=== PATIENT | male | born 1940 | race Caucasian/White ===

== ENCOUNTER 2016-10-25 13:43 | Inpatient (IN) | payer MEDICARE, OTHER ==
[~2016-10-25] VITALS: Ht 177.8 cm; Wt 123.0 kg
--- NOTE | ~2016-10-25 | DS ---
PATIENT'S NAME: LIGIA BABCOCK [facility] AGE: 76 Y [address] ROOM: [place] [address] LOCATION: [facility] ADMIT DATE: 10/25/2016 Discharge Summary DISCHARGE DATE: 10/28/2016 FAMILY PHYSICIAN: Ryann Kidd APRN ATTENDING PHYSICIAN: Axel Jeffrey HOSPITAL COURSE: Mr. Babcock was admitted, open right ankle and talus fracture and dislocation, was taken emergently to the operating room, had irrigation and debridement, open relocation of the right foot talonavicular joint, open relocation of right foot subtalar joint, open relocation of right ankle joint, repair of the apical fracture of distal fibula and the ankle capsule and application of a posterior splint external fixator. He received 72 hours of IV antibiotics. The wounds were stable. Ready for discharge to home with normal saline. Wet-to-dry dressing changes on the open wound. Regular diet. Non-weight bear on the right. Lovenox to avoid DVTs. Other medications to include Metoprolol, triamterene, Tylenol, Levitra. Will follow up with Dr. Jeffrey on November 18, 2016 at 10:00 a.m. AXEL JEFFREY MD DPM/zbigniew /[id number] d: 11/03/16 1345 t: 11/06/16 1219, DISCHARGE SUMMARY
--- NOTE | ~2016-10-25 | ER ---
PATIENT'S NAME: [facility] AGE: 76 Y [address] ROOM: [place] [id number] [place] [facility] [place]MIT DATE: 10/25/2016 ER/Outpatient Report DISCHARGE DATE: FAMILY PHYSICIAN: Ryann Kidd APRN ATTENDING PHYSICIAN: Axel Stoddard Time of Arrival: 1343. Time Seen: 1343. IDENTIFICATION: 76-year-old male. CHIEF COMPLAINT: Right ankle injury. HISTORY OF PRESENT ILLNESS: The patient is a 76-year-old male, who was brought in by EMS after falling off a step ladder in [place]. He hit the right side of his head, shoulder, and hip. No pain or injury in those areas. He did not lose consciousness. He has no headache. No vision changes. No neck pain. No numbness or tingling. No pain in the hip or shoulder. He has had a previous hip pinning on the right. He has pain in the right lower extremity. PAST MEDICAL HISTORY: ALLERGIES: PENICILLIN, SULFA, AND ERYTHROMYCIN CAUSING RASH. CURRENT MEDICATIONS: 1. Metoprolol 50 mg b.i.d. 2. Dyazide 75 mg half tablet daily. 3. Vardenafil 20 mg daily. MEDICAL PROBLEMS: Hypertension, hyperlipidemia, prostate cancer. PRIOR SURGERIES: Prostate surgery, right knee surgery, and right hip pinning. 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 Tobacco use, denies. Alcohol use, denies. Drug use, denies. Last tetanus, uncertain, greater than 10 years. The last meal was at 12:15 today. REVIEW OF SYSTEMS: PATIENT'S NAME: [facility] AGE: 76 Y [address] ROOM: [address] [address] [place] [facility] [place]MIT DATE: 10/25/2016 ER/Outpatient Report DISCHARGE DATE: FAMILY PHYSICIAN: Ryann Kidd APRN ATTENDING PHYSICIAN: Axel Stoddard All systems reviewed and negative other than what is noted in the HPI. FAMILY HISTORY: No pertinent family history identified. PHYSICAL EXAMINATION: VITAL SIGNS: Height 5 feet 10.5 inches and weight 126.5 kg. Blood pressure 157/70, pulse 63, respiratory rate 16, temperature 98.2, and saturations 96% on room air. GENERAL: A 76-year-old male, in mild distress. HEENT: Head: Normocephalic, atraumatic. Eyes: Pupils equal and reactive to light and accommodation. Extraocular movements intact. Nose: Mucosa pink. No lesions or drainage. Mouth: No lesions. Pharynx benign. NECK: Supple. No lymphadenopathy. No tenderness to palpation of his cervical spine. No tenderness to palpation of his cervical spine. No tenderness to palpation of his thoracic or lumbar spine. LUNGS: Clear to auscultation. ABDOMEN: Protuberant. Bowel sounds present. Soft, nondistended, nontender. No tenderness to pelvic rock. EXTREMITIES: Upper extremities, full range of motion. No deformities noted. Lower extremities, decreased range of motion right lower extremity with an obvious deformity with bleeding from a puncture wound over the lateral malleolus. He has a varus deformity of the right ankle. Distal pulses are 2+. Sensation is normal. NEUROLOGIC: The patient is alert and oriented x4. Cranial nerves 2 through 12 grossly intact. Motor strength 5/5 throughout. Sensation is intact to light touch. EMERGENCY DEPARTMENT COURSE: An IV was initiated. The patient was given fentanyl for pain control. Tetanus has been boosted. Clindamycin was ordered for antibiotics. X-ray of the pelvis, no acute fracture pending radiology over-read. X-ray of the right ankle reveals a dislocation of the subtalar joint with marked displacement with several adjacent fracture fragments and asymmetric widening along the medial aspect of the mortise. There is a horizontal fracture through the medial malleolus. IMPRESSION AND PLAN: 1. Open ankle fracture dislocation. Dr. Stoddard, orthopedic surgeon, was consulted, evaluated the patient in the emergency room, attempted closed reduction, which was unsuccessful. The patient did get a tetanus boosted here and clindamycin [address] scan of the right lower extremity revealed fracture dislocation of the talus, mildly comminuted and displaced fractures medial and lateral malleoli, anterior process calcaneus fracture, open fracture with extensive soft tissue gas. The PATIENT'S NAME: CLAUDETTE [facility] AGE: 76 Y [address] ROOM: [address] [address] LOCATION: [facility] [place]MIT DATE: 10/25/2016 ER/Outpatient Report DISCHARGE DATE: FAMILY PHYSICIAN: Ryann Kidd APRN ATTENDING PHYSICIAN: Axel Stoddard patient was taken emergently to the operating room per Dr. Stoddard for open reduction I and D, ORIF, and external fixator. 2. Hypertension. 3. History of prostate cancer. MD SILVIA IRENE/modl /[id number] d: 10/25/16 2140 t: 10/26/16 1244, OUTPATIENT REPORT
--- NOTE | ~2016-10-25 | HP ---
PATIENT'S NAME: CLAUDETTE [facility] AGE: 76 Y [address] ROOM: [place] [address] LOCATION: [facility] ADMIT DATE: 10/25/2016 History & Physical DISCHARGE DATE: FAMILY PHYSICIAN: Ryann Kidd APRN ATTENDING PHYSICIAN: Axel Jeffrey DATE OF SERVICE: 10/25/2016 TIME OF EVALUATION: 2:30 p.m. HISTORY OF PRESENT ILLNESS: Mr. Babcock is a 76-year-old white male, self-employed, working on his [employer] business, fell off a ladder, and sustained an open fracture dislocation of right foot and ankle. Denies any other injuries. MEDICATIONS: Takes metoprolol and hydrochlorothiazide. ALLERGIES: TO PENICILLIN. PAST MEDICAL HISTORY: He has prostate cancer and hypertension. SOCIAL HISTORY: Stopped smoking in the past. No alcohol. FAMILY MEDICAL HISTORY: Remarkable for cancer. 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 Does not consider himself retired. PHYSICAL EXAMINATION: HEENT: He hears and sees. Pharynx is clear. Back is nontender. HEART: Pulse rate is regular. LUNGS: Able to take in a deep breath. ABDOMEN: Obese, but nontender. EXTREMITIES: His right ankle is deformed, significant valgus deformity. There is an open wound laterally with fat tinged blood being expressed. Decreased sensation in the right foot. The pulses are palpable. DIAGNOSTIC DATA: X-ray series of the right ankle and foot are difficult to interpret. They are PATIENT'S NAME: [facility] AGE: 76 Y [address] ROOM: [place] [address] LOCATION: [facility] ADMIT DATE: 10/25/2016 History & Physical DISCHARGE DATE: FAMILY PHYSICIAN: Ryann Kidd APRN ATTENDING PHYSICIAN: Axel Jeffrey nonstandard views but there is dislocation of the talocalcaneal joint and also the talotibial joint, most likely a fracture but not obvious wear. ASSESSMENT/PLAN: To the operating room for an emergent irrigation and debridement of the open fracture and dislocation of the right ankle and foot. Most likely, has a talar fracture, may have a small fracture of the ankle as well, it is not seen on the x-rays. We will do a CT scan to help sort out immediately before surgery. Understands risk of avascular necrosis. 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 Could have a nonunion and may also have resulted in osteomyelitis. Risks, benefits, and alternatives were all discussed in detail. AXEL JEFFREY MD DPM/zbigniew /[id number] D: [id number] T: 004 HISTORY & PHYSICAL
--- NOTE | ~2016-10-25 | OR ---
PATIENT'S NAME: CLAUDETTE [facility] AGE: 76 Y [address] ROOM: [address] [address] [place] [facility] [place]: 10/25/2016 OR/Procedure Report DISCHARGE DATE: FAMILY PHYSICIAN: Ryann Kidd APRN ATTENDING PHYSICIAN: Axel Jeffrey SURGEON: Axel Jeffrey MD CMO & PRESIDENT: DATE OF PROCEDURE: 10/25/2016 DIAGNOSES: 1. Open dislocations of right ankle, right foot subtalar joint, and right foot talonavicular joint. 2. Open fracture, bimalleolar right ankle. 3. Open fracture of talus. 4. Anterior process fracture of the calcaneus. PROCEDURE: 1. Irrigation and debridement, open fractures and open joints of right ankle with foot. 2. Open relocation, right foot talonavicular joint. 3. Open relocation, right foot subtalar joint. 4. Open relocation, right ankle joint. 5. Repair apical fracture of distal fibula and ankle capsule and talofibular ligaments with #2 Ethibond. Closed treatment of calcaneal fracture. 6. Application of an external fixator. 7. Application of a posterior splint. ANESTHESIA: General en bloc. 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 To the operating room for urgent irrigation and debridement and relocations and application of external fixator and possible limited internal fixation. Risks, benefits, and alternatives were all discussed. Understands high risk of avascular necrosis of the talus, guarantee traumatic osteoarthritis, possible nonhealing or malunion, and osteomyelitis. Risks, benefits, and alternatives were all discussed in detail. The patient and family understand the plan of treatment which will involve multiple operations. DESCRIPTION OF PROCEDURE: Mr. Babcock was taken to the operating room, had been given clindamycin in the emergency room. General anesthetic was administered via endotracheal tube. He also had a previous placement of right lower extremity nerve block. Tourniquet was placed high about the right thigh. PATIENT'S NAME: CLAUDETTE [facility] AGE: 76 Y [address]: [address] [address] [place] [facility]: 10/25/2016 OR/Procedure Report DISCHARGE DATE: FAMILY PHYSICIAN: Ryann Kidd APRN ATTENDING PHYSICIAN: Axel Jeffrey Right lower extremity was prepared with Betadine scrubbing followed by Betadine painting and draped sterilely. Leg was exsanguinated. The tourniquet was inflated to 350 mmHg. The 2 cm area of devitalized tissue on the lateral surface of the foot and ankle about the dislocated talus open fracture was carefully debrided. The incision was extended proximally and distally for approximately 8 cm total for an anterior lateral approach to the ankle and the foot. There was necrotic tissue that was carefully debrided. The capsule of the talonavicular joint was disrupted and the dislocated head of the talus was buttonholed through the extensor tendons. This was all carefully mobilized. The subtalar joint, the fracture through the posterior facet of the talus involving almost 50% of the articular surface was markedly displaced. It was debrided, irrigated with 6 L with the pulse lavage. Loose bone fragments and cartilage fragments were all removed. The talonavicular joint was relocated. The subtalar joint was relocated with attempt to restore the alignment of the posterior facet with the reduction, but no fixation placed. The lateral malleolus, the apical fracture fragment, and the attached ligaments were repaired to the fibula and the proximal ligaments with #2 Ethibond. The anterior joint capsule was repaired with #2 Ethibond. The ankle joint was relatively stable. The medial malleolar fracture was not exposed surgically, but was demonstrated on fluoroscopic images to be reduced. The mortise views showed anatomic reduction of the talus and the bimalleolar fractures. The talonavicular joint was anatomically reduced. The fragment of bone of the calcaneus about the anterior process was noted and the subtalar joint was also anatomically reduced. The external fixator was applied with AO Synthes product large fragment set with 2 screws proximally to the tibia and a transection pin to the tibia. A triangular frame was attached and the reduction was stable. Wounds were irrigated. Subcutaneous tissues closed with 0 Vicryl. Skin was closed with a 2-0 nylon vertical mattress suture except for 2 cm length of the wound where the open fractures occurred and this was packed with half-strength Betadine soaked 2 x 2. Dry sterile dressing placed. Posterior splint. Procedure was done without complication. Estimated blood loss from the procedure was nil. Fluid replacement was crystalloids. Specimens none. Drains none. Packed open wound 2 cm in length with half-strength Betadine about the lateral open fracture site. The tourniquet time was 40 minutes. To recovery room in stable condition. In the recovery room, the toes were warm. Surprising even with the nerve block, he had good motion of his toes and felt some sensation. AXEL JEFFREY MD DPM/zbigniew PATIENT'S NAME: LIGIA BABCOCK [facility] AGE: 76 Y [address] ROOM: [place] [address] [place] [facility] [place] DATE: 10/25/2016 OR/Procedure Report DISCHARGE DATE: FAMILY PHYSICIAN: Ryann Kidd APRN ATTENDING PHYSICIAN: Axel Jeffrey /[id number] d: 10/25/168 t: 10/27/[address] [facility], OPERATIVE SUMMARY
[2016-10-25] MEDS ORDERED: LOPRESSOR50 MG PO (16:10)
[2016-10-25] MEDS ORDERED: TRIAMTERENE-HC1 EAC2 PO (16:12)
[2016-10-25] MEDS ORDERED: HYDROCHLOROTHIA50 MG PO (16:12)
[2016-10-25] MEDS ORDERED: LEVITRA20 MG PO (16:13)
[2016-10-28] MEDS ORDERED: HYDROGEN PEROXID1 ML TOP (08:07)
[2016-10-28] MEDS ORDERED: TYLENOL325 MG PO (08:08)
[2016-10-28] MEDS ORDERED: LOVENOX 4040 MG/0.4 SUB-Q (08:10)
[2016-10-28] MEDS ORDERED: COLACE100 MG PO (08:10)
[2016-10-28] MEDS ORDERED: NORCO 5-325 TA1 EACH PO (08:10)
[2016-11-27] MEDS ORDERED: SLO-NIACIN500 MG PO (17:34)
[2016-11-27] MEDS ORDERED: VITAMIN D35000 UNI1 PO (17:35)
[2016-11-27] MEDS ORDERED: B COMPLEX1 EACH PO (17:35)
[2016-11-27] MEDS ORDERED: FLAX SEED OIL1 EACH PO (17:36)
[2016-11-27] MEDS ORDERED: CALCIUM CARBON600 MG PO (17:36)
[2016-11-27] MEDS ORDERED: CO Q-10100 MG PO (17:37)
== END 2016-10-28 18:05 | disposition disaster alternative care site (69) | DRG 501 ==
LOC: GACC 13:43 → GMSU 15:45
PROVIDERS: ADMIT Orthopaedic Surgery
PROC: 0SSH05Z Reposition Right Tarsal Joint with External Fixation Device, Open Approach (ICD-10-PCS; principal; 2016-10-25)
PROC: 3E1038Z Irrigation of Skin and Mucous Membranes using Irrigating Substance, Percutaneous Approach (ICD-10-PCS; principal; 2016-10-25)
PROC: 0QBL0ZZ Excision of Right Tarsal, Open Approach (ICD-10-PCS; principal; 2016-10-25)
PROC: 0KBV0ZZ Excision of Right Foot Muscle, Open Approach (ICD-10-PCS; principal; 2016-10-25)
PROC: 0SBH0ZZ Excision of Right Tarsal Joint, Open Approach (ICD-10-PCS; principal; 2016-10-25)
DX: S82.841B Displaced bimalleolar fracture of right lower leg, initial encounter for open fracture type I or II (principal); S92.101B Unspecified fracture of right talus, initial encounter for open fracture; I10 Essential (primary) hypertension; S92.251B Displaced fracture of navicular [scaphoid] of right foot, initial encounter for open fracture; W11.XXXA Fall on and from ladder, initial encounter; Z85.46 Personal history of malignant neoplasm of prostate; Z87.891 Personal history of nicotine dependence; N52.9 Male erectile dysfunction, unspecified
CPT/HCPCS: A9270; J1170; J1650; J2250; J2405; J3010; J7030; J7050

== ENCOUNTER → 2016-11-18 | Outpatient (CLI) | payer MEDICARE, OTHER ==
[~2016-11-18] MED LIST: B COMPLEX1 EACH PO; CALCIUM CARBON600 MG PO; CO Q-10100 MG PO; COLACE100 MG PO; FLAX SEED OIL1 EACH PO; HYDROCHLOROTHIA50 MG PO; HYDROGEN PEROXID1 ML TOP; LEVITRA20 MG PO; LOPRESSOR50 MG PO; LOVENOX 4040 MG/0.4 SUB-Q; NORCO 5-325 TA1 EACH PO; SLO-NIACIN500 MG PO; TRIAMTERENE-HC1 EAC2 PO; TYLENOL325 MG PO; VITAMIN D35000 UNI1 PO
== END | disposition disaster alternative care site (69) ==
LOC: GRAD 08:36
DX: S82.891A Other fracture of right lower leg, initial encounter for closed fracture (principal); X58.XXXA Exposure to other specified factors, initial encounter

== ENCOUNTER 2016-11-28 10:19 | Day surgery (SDC) | payer MEDICARE, OTHER ==
[~2016-11-28] VITALS: Ht 177.8 cm; Wt 128.3 kg
--- NOTE | ~2016-11-28 | OR ---
PATIENT'S NAME: CLAUDETTE [facility] AGE: 76 Y [address] ROOM: [address] [address] LOCATION: [facility] ADMIT DATE: 11/28/2016 OR/Procedure Report DISCHARGE DATE: FAMILY PHYSICIAN: Ryann Kidd APRN ATTENDING PHYSICIAN: Axel Jeffrey SURGEON: Axel Jeffrey MD DIRECTOR ELECTRICAL ENGINEERING: DATE OF PROCEDURE: 11/28/2016 DIAGNOSES: 1. Open dislocation of right talus. 2. Open right ankle fracture. 3. Open right talus fracture. 4. Status post open relocation and lateral repair of the ankle and placement of external fixator. PROCEDURE: 1. Irrigation and debridement, open fractures of right ankle and subtalar joint. 2. Remove external fixator. 3. Open reduction and internal fixation, medial malleolus. 4. Open reduction and internal fixation, talus. 5. Deep cultures. ANESTHESIA: General. INDICATION: Mr. Babcock is status post open dislocation of the right talus and fractures of the talus in the ankle and subtalar joint. He has had open relocation of the dislocated talus and lateral repair of the ankle, now with the external fixator on. The soft tissues are stable for open reduction and internal fixation of the medial malleolus and the talus. Risks, benefits, and alternatives have been discussed. Understands open fractures, open joints, high risk of infection. We will take cultures, guarantee they have some degree of traumatic osteoarthritis, also at risk for avascular necrosis. Risks, benefits, and alternatives have all been discussed. DESCRIPTION OF PROCEDURE: The patient was taken to the operating room. General anesthetic was administered via endotracheal tube. Tourniquet was placed high about the right thigh. Right lower extremity and external fixator were prepared with Betadine scrubbing followed by Betadine painting and draped sterilely. The external fixator was removed. The posterior medial approach to the ankle and the subtalar joint was performed. The posterior tibial nerve and vessels were carefully retracted posteriorly without injury. The retinaculum was opened, the tendons were retracted, the medial malleolar fracture with immediate osteotomy and allowed exposure of the ankle joint and PATIENT'S NAME: [facility] AGE: 76 Y [address] ROOM: [id number] [place], [place] [address] LOCATION: [facility] ADMIT DATE: 11/28/2016 OR/Procedure Report DISCHARGE DATE: FAMILY PHYSICIAN: Ryann Kidd APRN ATTENDING PHYSICIAN: Axel Jeffrey the fracture through the talus into the posterior facet. Cultures were taken deep in the wound, irrigated with 3 L of pulse lavage after debridement. The talus fracture was anatomically reduced. K-wires for the 3.0 Synthes cannulated screws were placed. Anatomic reduction was confirmed, both with examination of the subtalar joint and x-ray. Two 3.0 cannulated screws with washers were placed with excellent fixation. The medial malleolus was then reduced. K-wire placed. Reduction confirmed, and a 4.0 cannulated AO Synthes screw placed with a washer, . Ankle joint was stable. Wounds were irrigated. Tourniquet was deflated. There was no injury to the artery or vein. The saphenous vein was also protected and preserved throughout the case. The retinaculum was repaired with 0 Vicryl, subcutaneous tissues were closed with 0 Vicryl followed by 2-0 Vicryl subcuticular followed by 3-0 nylon mattress sutures. Xeroform was placed over all wounds including the healed open wound and the pin sites covered with 4x4s and Kerlix cast padding followed by cotton batting. A posterior splint was placed with the ankle in a plantigrade position. Procedure was done without complication. ESTIMATED BLOOD LOSS: From the procedure was nil. FLUID REPLACEMENT: Crystalloids. TOURNIQUET TIME: 82 minutes. SPECIMEN: Deep cultures for aerobic and anaerobic cultures. DISPOSITION: To recovery room in stable condition. We will observe overnight. AXEL JEFFREY MD DPM/marciol /[id number] d: 11/28/16 2355 t: 11/29/16 1055, OPERATIVE SUMMARY
--- NOTE | ~2016-11-28 | DS ---
PATIENT'S NAME: LIGIA BABCOCK [facility] AGE: 76 Y [address] ROOM: [address] [address] LOCATION: [facility]3 ADMIT DATE: 11/28/2016 Discharge Summary DISCHARGE DATE: 11/29/2016 FAMILY PHYSICIAN: Ryann Kidd APRN ATTENDING PHYSICIAN: Axel Jeffrey HISTORY OF PRESENT ILLNESS: Mr. 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 Complete dislocation of the talus. It was relocated, placed in the fixator. Limited fixation of the lateral ankle. The open wounds have healed. Now was admitted for fixation of the talus at the subtalar joint and the medial malleolus. He was taken to the operating room. He had debridement of the open fractures and joint. Cultures were taken deep in the wound. The wounds looked good. No purulence. Healthy tissue. The talus was fixated with two 3.0 cannulated screws with washers. The medial malleolus was repaired with 4.0 cannulated screw with a washer. Wound easily closed and placed in a well-padded Hughes dressing. Postop pain was easily controlled, easily had a block. When the block wore off, still continued to have minimal pain, could move his toes fully without difficulty. No pain on passive stretch and felt good sensation. Minimal edema. He mobilized nonweightbearing without difficulty, eating without nausea and vomiting. He has voided. Ready for discharge to home. Discharged to home on Lovenox 40 mg once a day subcutaneously, prescription was written for 21 days; Jackson initially for pain if needed, then transition to Tylenol, prescription for 50 tablets one every 3 hours p.r.n. for pain. Other medications are with medicines that he was on at the time admission and managed by his medical physician, which include, 1. Flaxseed. 2. CoQ. 3. Triamterene/hydrochlorothiazide. 4. Levitra. 5. Tylenol. 6. Colace. 7. B complex. 8. Lopressor. 9. Niacin. 10. Vitamin D3. Regular diet. Elevate when possible, up nonweightbearing, splint care instructions, follow up with Dr. Jeffrey on December 16, 2016 at 1 o'clock p.m. [facility] will be faxing his medical prescriptions to the [facility], to be filled there. PATIENT'S NAME: LIGIA BABCOCK [facility] AGE: 76 Y [address] ROOM: [place] [address] LOCATION: [facility] ADMIT DATE: 11/28/2016 Discharge Summary DISCHARGE DATE: 11/29/2016 FAMILY PHYSICIAN: Ryann Kidd APRN ATTENDING PHYSICIAN: Axel Jeffrey AXEL JEFFREY MD DPM/zbigniew /[id number] d: 11/29/16 1243 t: 12/03/16 1726, DISCHARGE SUMMARY
--- NOTE | 2016-11-29 03:07 | NUR ---
Significant Event: PATIENT ALERT AND ORIENTED X 3. VSS. TAKING PO AND VOIDING WITHOUT DIFFICULTY. UP WITH 1 ASSIST/WALKER/GB. ARTHUR WRAP/SPLINT BULKY DRESSING C/D/I. SL PATENT TO R) LOWER EXT. [facility]'S WNL EXCEPT FOR DULLNESS TO FIRST 3 TOES AND N/T TO LAST 2 TOES. WIGGLES TOES WITHOUT DIFFICULTY. STATES N/T IS NORMAL FOR HIM. PAIN WELL CONTROLLED WITH NORCO LAST AT 0240. PLEASANT AND COOPERTIVE WITH CARES. POSSIBLE D/C TO HOME TODAY. Follow up: NEEDS D/C MEDS FAXED TO [facility]. CAN NOT GET MEDS AT [facility].
--- NOTE | 2016-11-29 10:25 | NUR ---
Introduced self/role to patient and , remembered me from previous stay. No needs when they leave here, planning on home today. 1045 [facility] and let her know patient didn't need to be transferred due to discharging.
[2016-11-29] MEDS ORDERED: NORCO 5-325 TA1 EACH PO (11:19)
[2016-11-29] MEDS ORDERED: LOVENOX 4040 MG/0.4 SUB-Q (11:21)
--- NOTE | 2016-11-29 11:49 | NUR ---
Student nurse provided patient cares from 0630 to 1215. Cristian Torres RN, [facility] Instructor
--- NOTE | 2016-11-29 19:32 | NUR ---
DISCHARGE INSTRUCTIONS GIVEN TO PATIENT AND HIS BY John REDDY RN. VOICED UNDERSTANDING OF ALL INSTRUCTIONS. ALL BELONGINGS SENT WITH PATIENT. TO FRONT DOOR PER W/C.
== END 2016-11-29 12:49 | disposition disaster alternative care site (69) ==
LOC: G3N 10:19 → GSDC 10:19 → G3N 20:09 → GSDC 11-29 12:49
PROC: 0QSL04Z Reposition Right Tarsal with Internal Fixation Device, Open Approach (ICD-10-PCS; principal; 2016-11-28)
PROC: 0QHL05Z Insertion of External Fixation Device into Right Tarsal, Open Approach (ICD-10-PCS; 2016-11-28)
PROC: 0QSG04Z Reposition Right Tibia with Internal Fixation Device, Open Approach (ICD-10-PCS; 2016-11-28)
DX: S92.101B Unspecified fracture of right talus, initial encounter for open fracture (principal); S82.51XB Displaced fracture of medial malleolus of right tibia, initial encounter for open fracture type I or II; W17.89XA Other fall from one level to another, initial encounter; Y93.89 Activity, other specified; Y92.099 Unspecified place in other non-institutional residence as the place of occurrence of the external cause; I10 Essential (primary) hypertension; Z85.46 Personal history of malignant neoplasm of prostate; Z90.89 Acquired absence of other organs; Z98.890 Other specified postprocedural states; Z88.0 Allergy status to penicillin; Z88.1 Allergy status to other antibiotic agents; Z88.2 Allergy status to sulfonamides; Z87.891 Personal history of nicotine dependence
CPT/HCPCS: A9270; C1713; C1769; J1650; J2001; J7030